=== PATIENT | female | born 1995 | race Hispanic/Latino ===

== ENCOUNTER 2022-09-22 08:55 | Outpatient (CLI) ==
[~2022-09-22] VITALS: Ht 157.5 cm; Wt 79.2 kg
[2022-09-22 09:28] VITALS: BP 107/60
[2022-09-22] MEDS ORDERED: IRON65TA2 PO (09:33)
[2022-09-22] MEDS ORDERED: [UNRECOGNIZED DRUG - OTHER] (09:33)
[2022-09-22] MEDS ORDERED: PRENTAB9 PO (09:33)
== END 2022-09-22 10:55 | disposition home or self-care (01) ==
LOC: M LDO 08:55
PROVIDERS: ATTEND Obstetrics & Gynecology
DX: O47.1 False labor at or after 37 completed weeks of gestation (principal); O48.0 Post-term pregnancy; Z3A.40 40 weeks gestation of pregnancy; O99.824 Streptococcus B carrier state complicating childbirth; Z88.0 Allergy status to penicillin
CPT/HCPCS: 59025; G0378; G0463

== ENCOUNTER 2022-09-24 16:05 | Inpatient (IN) ==
[~2022-09-24] VITALS: Ht 157.5 cm; Wt 79.8 kg
[~2022-09-24 16:05] MED LIST: IRON65TA2 PO; PRENTAB9 PO; [UNRECOGNIZED DRUG - OTHER]
[2022-09-24 16:36] VITALS: BP 101/61
[2022-09-24 17:18] VITALS: BP 103/64
[2022-09-24 18:26] LABS: HEMATOCRIT 38.5 % (36.0-47.0); HEMOGLOBIN 13.8 g/dl (12.0-15.5); MEAN CORPUSCULAR HGB CONC 35.8 g/dl (32.0-36.5); MEAN CORPUSCULAR VOLUME 94.8 fl (80.0-96.0); PLATELET COUNT, AUTOMATED 246 10^3/uL (150-450); RED BLOOD COUNT 4.06 10^6/uL (4.00-5.40); WHITE BLOOD COUNT 7.3 10^3/uL (4.0-10.0)
[2022-09-24] MEDS ORDERED: METHYLERGONOVINE MALEATE 0.2 MG/ML VIAL (J2210) IM PRN (18:35)
[2022-09-24] MEDS ORDERED: OXYTOCIN DRIP 30 UNITS in IV 1 EA IV PRN ×4 (18:35)
[2022-09-24] MEDS ORDERED: LIDOCAINE 1% MDV 20ML VIAL INFIL PRN (18:35)
[2022-09-24] MEDS ORDERED: TRANEXAMIC ACID INJection 1,000 MG in NS 100 ML IV PRN (18:35)
[2022-09-24 19:12] VITALS: BP 106/64
[2022-09-24] MEDS: miSOPROStol 25MCG 1/4 TABLET PO SCH (19:51)
[2022-09-24] MEDS ORDERED: * PENDING VANCOMYCIN ENTRY XX SCH (21:00)
[2022-09-24 21:07] VITALS: BP 100/59
[2022-09-24 23:07] VITALS: BP 110/63
[2022-09-24] MEDS ORDERED: diphenhydrAMINE 25MG CAP PO ONE (23:50)
[2022-09-25] VITALS (17 sets, daily range): BP systolic 88–119; BP diastolic 51–73
[2022-09-25] MEDS: LR 1,000 ML IV SCH ×3 (00:06→10:47)
[2022-09-25] MEDS: miSOPROStol 25MCG 1/4 TABLET PO SCH ×6 (00:06→21:31)
[2022-09-25] MEDS ORDERED: BUTORPHANOL 2 MG/ML INJ (J0595) IV ONE (21:30)
[2022-09-25] MEDS ORDERED: PROMETHAZINE 25MG/ML 1ML VIAL IV ONE (21:30)
[2022-09-26] VITALS (49 sets, daily range): BP systolic 90–127; BP diastolic 50–77
[2022-09-26] MEDS: miSOPROStol 25MCG 1/4 TABLET PO SCH ×3 (01:52→08:00)
[2022-09-26] MEDS: LR 1,000 ML IV SCH ×5 (05:07→21:50)
[2022-09-26] MEDS ORDERED: OXYTOCIN DRIP 30 UNITS in IV 1 EA IV SCH (08:00)
[2022-09-26] MEDS: VANCOMYCIN HCL 1,000 MG, VIAL MATE ADAPTER 1 EACH in D5W 250 ML IV SCH ×2 (11:20→23:37)
[2022-09-26] MEDS ORDERED: LR 500 ML IV PRN (13:55)
[2022-09-26] MEDS ORDERED: ONDANSETRON 4MG 2ML VIAL IV PRN (13:55)
[2022-09-26] MEDS ORDERED: EPIDURAL/PCA KEYS XX PRN (13:55)
[2022-09-26] MEDS ORDERED: NALOXONE INJ 0.4MG/1ML VIAL (J2310 PER 1MG) IV PRN (13:55)
[2022-09-26] MEDS ORDERED: diphenhydrAMINE 50MG/ML VIAL IV PRN (13:55)
[2022-09-26] MEDS: FENTANYL/ROPIVACAINE/NACL BAG 100 ML EPIDURAL SCH (14:34)
[2022-09-26] MEDS: ePHEDrine SULFATE 25 MG/5 ML(5MG/ML) SYRINGE IVP PRN (20:15)
[2022-09-27] VITALS (41 sets, daily range): BP systolic 83–141; BP diastolic 49–80
[2022-09-27] MEDS ORDERED: ACETAMINOPHEN 500 MG TAB PO ONE (01:00)
[2022-09-27] MEDS: FENTANYL/ROPIVACAINE/NACL BAG 100 ML EPIDURAL SCH (01:12)
[2022-09-27] MEDS: ePHEDrine SULFATE 25 MG/5 ML(5MG/ML) SYRINGE IVP PRN ×2 (03:11→03:14)
[2022-09-27] MEDS: LR 1,000 ML IV SCH ×2 (09:59)
[2022-09-27] MEDS ORDERED: ACETAMINOPHEN TAB 650MG DOSE (2X325MG) PO PRN (12:05)
[2022-09-27] MEDS ORDERED: IBUPROFEN 600MG TAB PO PRN (12:05)
[2022-09-27] MEDS ORDERED: ANUSOL HC CREAM 30GM TOP PRN (12:05)
[2022-09-27] MEDS ORDERED: DOCUSATE SODIUM 100MG CAPSULE PO PRN (12:05)
[2022-09-27] MEDS ORDERED: METHYLERGONOVINE MALEATE 0.2 MG TAB PO PRN (12:05)
[2022-09-27] MEDS ORDERED: OXYTOCIN DRIP 30 UNITS in IV 1 EA IV PRN (12:15)
[2022-09-27] MEDS ORDERED: METHYLERGONOVINE MALEATE 0.2 MG/ML VIAL (J2210) IM PRN (12:15)
[2022-09-27] MEDS ORDERED: OXYTOCIN INJ 10 UNITS/ML VIAL (J2590) IV PRN (12:15)
[2022-09-27] MEDS ORDERED: TRANEXAMIC ACID INJection 1,000 MG in NS 100 ML IV PRN (12:15)
[2022-09-27] MEDS: ACETAMINOPHEN 500 MG TAB PO PRN ×2 (12:57→20:09)
[2022-09-27] MEDS: IBUPROFEN 800 MG TAB PO PRN (13:18)
[2022-09-27] MEDS: DIBUCAINE 1% OINTMENT 30GM TOP PRN (15:54)
[2022-09-27] MEDS ORDERED: TRANEXAMIC ACID 100 MG/ML 10ML VIAL ONE (16:17)
[2022-09-28 06:00] VITALS: BP 110/70
[2022-09-28] MEDS: PRENATAL VITAMINS CHEWABLE TABLET PO SCH (09:43)
[2022-09-28] MEDS: IBUPROFEN 800 MG TAB PO PRN (10:54)
[2022-09-28 18:00] VITALS: BP 107/67
[2022-09-29] MEDS: ACETAMINOPHEN 500 MG TAB PO PRN (02:31)
[2022-09-29 06:00] VITALS: BP 124/77
[2022-09-29] MEDS ORDERED: COLA100C5 PO (07:34)
[2022-09-29] MEDS ORDERED: ACET1TAB55 PO (07:34)
[2022-09-29] MEDS ORDERED: IBUP80TA PO (07:34)
[2022-09-29] MEDS: PRENATAL VITAMINS CHEWABLE TABLET PO SCH (07:56)
[2022-09-29] MEDS: DIBUCAINE 1% OINTMENT 30GM TOP PRN (11:22)
== END 2022-09-29 12:10 | disposition home or self-care (01) | DRG 807 ==
LOC: M LDI 16:05 → M OBS 09-27 15:24
PROVIDERS: ADMIT Obstetrics & Gynecology; ATTEND Advanced Practice Midwife
PROC: 3E0P7GC Introduction of Other Therapeutic Substance into Female Reproductive, Via Natural or Artificial Opening (ICD-10-PCS; 2022-09-24)
PROC: 10907ZC Drainage of Amniotic Fluid, Therapeutic from Products of Conception, Via Natural or Artificial Opening (ICD-10-PCS; 2022-09-26)
PROC: 10E0XZZ Delivery of Products of Conception, External Approach (ICD-10-PCS; principal; 2022-09-27)
PROC: 0KQM0ZZ Repair Perineum Muscle, Open Approach (ICD-10-PCS; 2022-09-27)
DX: O48.0 Post-term pregnancy (principal); Z37.0 Single live birth; Z3A.41 41 weeks gestation of pregnancy; O99.824 Streptococcus B carrier state complicating childbirth; O76 Abnormality in fetal heart rate and rhythm complicating labor and delivery; O77.0 Labor and delivery complicated by meconium in amniotic fluid; O69.81X0 Labor and delivery complicated by cord around neck, without compression, not applicable or unspecified; O70.1 Second degree perineal laceration during delivery; Z88.0 Allergy status to penicillin; Z86.16 Personal history of COVID-19